=== PATIENT | female | born 1995 | race African-American/Black ===

== ENCOUNTER 2018-04-23 05:46 | Emergency (ER) | payer OTHER ==
[2018-04-23] MEDS ORDERED: FAMOTIDINE 20 MG/50 ML IVPB 20 MG/50 ML MG IVPB ONE ×2 (05:48→06:20)
[2018-04-23] MEDS ORDERED: ACETAMINOPHEN 1000 MG/100 ML VIAL (NON FORMULARY) IVPB ONE (05:48)
[2018-04-23] MEDS ORDERED: SODIUM CHLORIDE 1,000 ML IV STA (05:48)
--- NOTE | 2018-04-23 05:48 | PDOC ---
History of Present Illness - General Stated Complaint: STOMACH PAIN Time Seen by Provider: 04/23/18 05:47 History Source: Patient Exam Limitations: No Limitations - History of Present Illness Initial Comments: 04/23/18 06:01 22 YOF with h/o herpes, asthma, ovarian cysts. p/w acute onset of periumbilical AP since 3am this morning. described as sharp and tight, nonradiating, a/w nausea and NBNB clear emesis. she tried to eat leftover carrot and meal, but unable to tolerate. no diarrhea, f/c, urinary sx, cp or sob, rene, dizziness, VB or discharge. never had similar sx previously. denies pt states she was working at a 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 no tobacco or etoh use. +occasional cannibis use, but did not use today. denies surgical history. 04/23/18 06:08 Past History - Past Medical History Allergies/Adverse Reactions: Allergies Allergy/AdvReac Type Severity Reaction Status Date / Time No Known Allergies Allergy Unverified 04/23/18 05:52 Home Medications: Ambulatory Orders Esomeprazole Magnesium [Nexium 24Hr] 20 mg PO DAILY #30 capsule. 04/23/18 Ondansetron [Zofran Odt -] 4 mg SL TID PRN #9 od.tablet 04/23/18 Review of Systems - Review of Systems Able to Perform ROS?: Yes Comments:: 04/23/18 06:06 GENERAL/CONSTITUTIONAL: No fever or chills. No weakness. no sweats. HEAD, EYES, EARS, NOSE AND THROAT: No change in vision or hearing. No ear pain or discharge. No sore throat or mouth pain. No difficulty swallowing. No congestion. CARDIOVASCULAR: No chest pain or palpitations, syncope or edema. RESPIRATORY: No SOB, cough, wheezing, or hemoptysis. GASTROINTESTINAL +abdominal pain, nausea/vomiting. No diarrhea or constipation. No bloody stools. GENITOURINARY: No hematuria, dysuria, frequency, urgency or other changes. no VB or discharge. MUSCULOSKELETAL: No joint or muscle swelling or pain. No neck or back pain. SKIN: No rash or changes in skin color or lesions. NEUROLOGIC: No headache, vertigo, loss of consciousness, or change in strength/ sensation. No gait instability. HEMATOLOGIC/LYMPHATIC: No anemia, easy bruising/bleeding, or history of blood clots. ALLERGIC/IMMUNOLOGIC: No allergies All other systems reviewed and negative, or as documented in HPI. 04/23/18 06:08 *Physical Exam - Physical Exam Comments: 04/23/18 06:06 General: NAD, lying in bed comfortable HEENT: NCAT, PERRL, EOMI, clear conjunctiva, anicteric, moist mucus membranes, clear oropharynx, no oral lesions.. Neck: neck supple, FROM Resp: CTAB, normal and even respirations, no respiratory distress CVS: RRR, no murmurs, 2+ peripheral pulses throughout, no peripheral edema Abdomen: soft, nondistended. +periumbilical and epigastric TTP. Back: nontender, normal inspection and ROM. no CVAT MSK: no edema, JIMÉNEZ x4, ROM intact. Neuro: alert Skin: warm and well perfused, cap refill <2 sec, normal color 04/23/18 06:12 ED Treatment Course - LABORATORY CBC & Chemistry Diagram: 04/23/18 06:00 04/23/18 06:00 Medical Decision Making - Medical Decision Making 04/23/18 06:05 22 YOF with periumbilical AP, n/v tonight. Initial Vital Signs Temp Pulse Resp BP Pulse Ox 98.1 F 73 16 109/61 100 04/23/18 05:53 04/23/18 05:53 04/23/18 05:53 04/23/18 05:53 04/23/18 05:53 DDx abdominal pain: Renal colic, biliary colic, metabolic/electrolyte derangements. GERD, PUD, esophageal spasm, pancreatitis, hepatitis, constipation , food poisoning, colitis, gastroenteritis, cholecystitis, hernia, no lower quad tenderness, so doubt appy, diverticulitis or pelvic pathology w/o VB or discharge. vitals wnl, reassuring given PO maalox, pepcid, IVF, zofran, tylenol, reassess. doubt emergent pathology as documented in ddx as volitional component, soft abdomen and otherwise well appearing state. while in the ED, witnessed pt putting fingers in mouth trying to induce vomiting. no blood emesis here. basic labs, lytes, LFTs and lipase normal dispo pending reeval. likely DC if negative 04/23/18 06:11 04/26/18 17:44 *DC/Admit/Observation/Transfer Diagnosis at time of Disposition: Abdominal pain, Nausea - Discharge Dispostion Disposition: HOME Condition at time of disposition: Stable - Prescriptions Prescriptions: Esomeprazole Magnesium [Nexium 24Hr] 20 mg PO DAILY #30 capsule. Ondansetron [Zofran Odt -] 4 mg SL TID PRN #9 od.tablet PRN Reason: Nausea And/Or Vomiting - Referrals Referrals: [facility] [Provider Group] [facility] [place] [facility] [place] [Provider Group] Hans Arias MD [Staff Physician] - Brynn Banks MD [Staff Physician] - - Patient Instructions Printed Discharge Instructions: DI for Abdominal Pain-Adult, DI for Nausea -- Adult Additional Instructions: you were evaluated in the department for abdominal pain and nausea you were given medications for your pain avoid potential food precipitants. drink plenty of fluids you are prescribed zofran as needed for nausea, stay hydrated avoid marijuana use or alcohol that could trigger another attack follow up with primary doctor and gastroenterologists, referrals given. If you experience worsening pain, vomiting, fevers, or any other concerning symptoms, return to the ER immediately. - Post Discharge Activity Forms/Work/School Notes: Back to Work
[2018-04-23 05:57] VITALS: BMI 25.0
[2018-04-23] MEDS ORDERED: ONDANSETRON 4 MG/2 ML VIAL IVPUSH ONE (06:00)
[2018-04-23] MEDS ORDERED: ONDANSETRON 4 MG/2 ML VIAL ONE (06:08)
[2018-04-23] MEDS ORDERED: MAG HYDROX/AL HYDROX/SIMETH 30 ML UNIT-DOSE CUP PO ONE (06:11)
[2018-04-23] MEDS ORDERED: MAG HYDROX/AL HYDROX/SIMETH 30 ML UNIT-DOSE CUP ONE (06:20)
[2018-04-23 06:50] LABS: BASO % 0.8 % (0-2.0); EOS % 3.5 % (0-4.5); HEMATOCRIT 35.5 % (32.4-45.2); HEMOGLOBIN 11.7 GM/dL (10.7-15.3); LYMPH % 55.6 % (8-40); MCH 28.8 pg (25.7-33.7); MCHC 32.8 g/dl (32.0-36.0); MEAN CELL VOLUME 87.8 fl (80-96); MONO % 7.1 % (3.8-10.2); PLATELET COUNT 232 K/MM3 (134-434); RBC 4.05 M/mm3 (3.60-5.2); RDW 13.3 % (11.6-15.6); WHITE BLOOD COUNT 6.1 K/mm3 (4.0-10.0)
[2018-04-23 07:20] LABS: ALBUMIN 3.8 g/dl (3.4-5.0); ALK PHOS 55 U/L (45-117); ANION GAP 8 MMOL/L (8-16); BILIRUBIN,TOTAL 0.4 mg/dL (0.2-1); BLOOD UREA NITROGEN 7 mg/dL (7-18); CALCIUM 8.8 mg/dL (8.5-10.1); CHLORIDE 104 mmol/L (98-107); CO2 27 mmol/L (21-32); CREATININE 0.5 mg/dL (0.55-1.3); GLUCOSE,RANDOM 92 mg/dL (74-106); LIPASE 170 U/L (73-393); POTASSIUM 3.7 mmol/L (3.5-5.1); SGOT/AST 18 U/L (15-37); SGPT/ALT 20 U/L (13-61); SODIUM 139 mmol/L (136-145); TOT PROT 7.1 g/dl (6.4-8.2)
[2018-04-23] MEDS ORDERED: PANTOPRAZOLE SODIUM 40 MG VIAL IVPUSH ONE (07:25)
[2018-04-23] MEDS ORDERED: PANTOPRAZOLE SODIUM 40 MG VIAL ONE (07:36)
--- NOTE | 2018-04-23 08:02 | PDOC ---
*Physical Exam - Vital Signs Last Vital Signs Temp Pulse Resp BP Pulse Ox 98.1 F 73 16 109/61 100 04/23/18 05:53 04/23/18 05:53 04/23/18 05:53 04/23/18 05:53 04/23/18 05:53 ED Treatment Course - LABORATORY CBC & Chemistry Diagram: 04/23/18 06:00 04/23/18 06:00 - ADDITIONAL ORDERS Additional order review: Laboratory Results 04/23/18 04/23/18 06:00 06:00 Sodium 139 Potassium 3.7 Chloride 104 Carbon Dioxide 27 Anion Gap 8 BUN 7 Creatinine 0.5 L Creat Clearance w eGFR > 60 Random Glucose 92 Calcium 8.8 Total Bilirubin 0.4 AST 18 ALT 20 Alkaline Phosphatase 55 Total Protein 7.1 Albumin 3.8 Lipase 170 Serum , Qual Negative 04/23/18 06:00 RBC 4.05 MCV 87.8 MCHC 32.8 RDW 13.3 MPV 10.0 Neutrophils % 33.0 L Lymphocytes % 55.6 H Monocytes % 7.1 Eosinophils % 3.5 Basophils % 0.8 - Medications Given in the ED: ED Medications Discontinued Medications Generic Name Dose Route Start Last Admin Trade Name Freq PRN Reason Stop Dose Admin Acetaminophen 1,000 mg 04/23/18 05:48 04/23/18 06:10 Ofirmev Injection - IVPB 04/23/18 05:49 1,000 mg ONCE ONE Administration Al Hydroxide/Mg Hydroxide 30 ml 04/23/18 06:11 04/23/18 06:18 Mylanta Oral Suspension - PO 04/23/18 06:12 30 ml ONCE ONE Administration Famotidine/Sodium Chloride 20 mg in 50 mls @ 100 mls/hr 04/23/18 05:48 06:17 Pepcid 20 Mg Premixed Ivpb - IVPB 04/23/18 06:17 100 mls/hr ONCE ONE Administration Sodium Chloride 1,000 mls @ 1,000 mls/hr 04/23/18 05:48 04/23/18 06:17 Normal Saline - IV 04/23/18 06:47 1,000 mls/hr ASDIR STA Administration Ondansetron HCl 4 mg 04/23/18 06:00 04/23/18 06:18 Zofran Injection IVPUSH 04/23/18 06:01 4 mg ONCE ONE Administration Pantoprazole Sodium 40 mg 04/23/18 07:25 04/23/18 07:49 Protonix Iv IVPUSH 04/23/18 07:26 40 mg ONCE ONE Administration Medical Decision Making - Medical Decision Making 04/23/18 08:01 22 yo F with epigastric pain + N/V. Sign out taken at 7am. Labs unremarkable Pt reassessed s/p GI cocktail - now with improved pain. able to tolerate PO. Pt is well appearing, with normal vitals. Clinically stable for DC at this time. I discussed the physical exam findings, ancillary test results and final diagnoses with the patient. I answered all of the patient's questions. The patient was satisfied with the care received and felt comfortable with the discharge plan and treatment plan. The patient agrees to follow up with the primary care physician within 24-72 hours. *DC/Admit/Observation/Transfer Diagnosis at time of Disposition: Abdominal pain, Nausea - Discharge Dispostion Disposition: HOME Condition at time of disposition: Stable - Prescriptions Prescriptions: Esomeprazole Magnesium [Nexium 24Hr] 20 mg PO DAILY #30 capsule. Ondansetron [Zofran Odt -] 4 mg SL TID PRN #9 od.tablet PRN Reason: Nausea And/Or Vomiting - Referrals Referrals: [facility] [place] [facility] [place] [Provider Group] [facility] [Provider Group] Brynn Banks MD [Staff Physician] - Hans Arias MD [Staff Physician] - - Patient Instructions Printed Discharge Instructions: DI for Abdominal Pain-Adult, DI for Nausea -- Adult Additional Instructions: you were evaluated in the department for abdominal pain and nausea you were given medications for your pain avoid potential food precipitants. drink plenty of fluids you are prescribed zofran as needed for nausea, stay hydrated avoid marijuana use or alcohol that could trigger another attack follow up with primary doctor and gastroenterologists, referrals given. If you experience worsening pain, vomiting, fevers, or any other concerning symptoms, return to the ER immediately. - Post Discharge Activity Forms/Work/School Notes: Back to Work - Attestations Physician Attestion: 04/23/18 08:02 I, Dr. Pantera Pitts MD, attest that this document has been prepared under my direction and personally reviewed by me in its entirety. I further attest, that it accurately reflects all work, treatment, procedures and medical decision -making performed by me.
[2018-04-23 08:07] VITALS: BP 103/63; PULSE 70; TEMP 98.3
== END 2018-04-23 08:38 | disposition home or self-care (01) ==
LOC: FER 05:46
PROC: 3E033NZ Introduction of Analgesics, Hypnotics, Sedatives into Peripheral Vein, Percutaneous Approach (ICD-10-PCS; principal; 2018-04-23)
PROC: 3E033GC Introduction of Other Therapeutic Substance into Peripheral Vein, Percutaneous Approach (ICD-10-PCS; 2018-04-23)
PROC: 3E0337Z Introduction of Electrolytic and Water Balance Substance into Peripheral Vein, Percutaneous Approach (ICD-10-PCS; 2018-04-23)
DX: R10.31 Right lower quadrant pain (principal); R10.33 Periumbilical pain; R11.0 Nausea; N83.209 Unspecified ovarian cyst, unspecified side; J45.909 Unspecified asthma, uncomplicated
CPT/HCPCS: 36415; 80053; 83690; 84703; 85025; 96361; 96365; 96375; 99282-25; J0131; J7030